=== PATIENT | female | born 1985 | race Caucasian/White ===

== ENCOUNTER 2020-06-29 14:09 | Observation (INO) | payer MEDICAID ==
[~2020-06-29] VITALS: Ht 157.5 cm; Wt 67.1 kg
[~2020-06-29 14:09] MED LIST: TYLENOL PO
[2020-06-29] MEDS ORDERED: FOLI0.4T2 MT (15:29)
[2020-06-29] MEDS ORDERED: PREN1TAB78 MT (15:29)
[2020-06-29] MEDS ORDERED: ASPI-1497 MT (15:29)
== END 2020-06-29 16:30 | disposition home or self-care (01) ==
LOC: 8 EST A/PP 14:09
PROVIDERS: ADMIT Obstetrics & Gynecology; ATTEND Obstetrics & Gynecology
DX: Z34.93 Encounter for supervision of normal pregnancy, unspecified, third trimester (principal); Z3A.32 32 weeks gestation of pregnancy
CPT/HCPCS: 59025; 76815; 76818; G0378

== ENCOUNTER 2020-07-02 09:46 | Inpatient (IN) | payer MEDICAID ==
[~2020-07-02] VITALS: Ht 157.5 cm; Wt 67.1 kg
[~2020-07-02 09:46] MED LIST changes: +ASPI-1497 MT; +FOLI0.4T2 MT; +PREN1TAB78 MT
[2020-07-02] MEDS: LACTATED RINGERS 1,000 ML IV SCH ×2 (16:56→23:47)
[2020-07-02] MEDS ORDERED: AZITHROMYCIN 500 MG TABLET PO SCH (18:00)
[2020-07-02] MEDS ORDERED: BETAMETHASONE ACET/BETAMET 30 MG/5 ML VIAL IM SCH (18:00)
[2020-07-02] MEDS: AMPICILLIN 2GM in NS 100ML 100 ML IV SCH (18:50)
[2020-07-02 21:23] LABS: BASOPHILS % 0.7 % (0.0-2.0); EOSINOPHILS % 0.5 % (0.0-5.0); HEMATOCRIT. 30.6 % (36.0-48.0); HEMOGLOBIN. 10.2 g/dL (12.0-16.0); LYMPHOCYTES % 23.3 % (20.0-50.0); MEAN CORPUSCULAR HEMOGLOBIN 27.8 pg (28.0-32.0); MEAN PLATELET VOLUME 8.2 fl (7.4-10.4); MONOCYTES % 7.8 % (2.0-8.0); NEUTROPHILS % 67.7 % (40.0-76.0); PLATELET 307 x1000/uL (130-400); RED BLOOD CELL COUNT 3.69 mill/uL (4.2-5.4); RED CELL DISTRIBUTION WIDTH 13.9 % (11.6-14.6)
[2020-07-02 21:26] LABS: CLARITY URINE CLEAR (CLEAR); COLOR URINE YELLOW (YELLOW); KETONES URINE NEGATIVE (NEGATIVE); LEUKOCYTE ESTERASE URINE NEGATIVE (NEGATIVE); NITRITE URINE NEGATIVE (NEGATIVE); OCCULT BLOOD URINE NEGATIVE (NEGATIVE); PROTEIN URINE NEGATIVE (NEGATIVE); UROBILINOGEN URINE 0.2 E.U./dL (0.2-1.0)
[2020-07-02 21:34] LABS: INR 0.9; PARTIAL THROMBOPLASTIN TIME 23.4 sec (23.4-31.0); PROTHROMBIN TIME 9.7 sec (9.6-11.0)
[2020-07-02 21:47] LABS: *BARBITURATES SCREEN URINE NEGATIVE (NEGATIVE); *COCAINE SCREEN URINE NEGATIVE (NEGATIVE)
[2020-07-02 21:48] LABS: *AMPHETAMINES SCREEN URINE NEGATIVE (NEGATIVE); *BENZODIAZEPINES SCREEN URINE NEGATIVE (NEGATIVE); METHADONE URINE SCREEN NEGATIVE (NEGATIVE); OPIATES URINE SCREEN NEGATIVE (NEGATIVE); PHENCYCLIDINE URINE SCREEN NEGATIVE (NEGATIVE)
[2020-07-02 21:49] LABS: CANNABINOID URINE SCREEN NEGATIVE (NEGATIVE)
[2020-07-02 22:06] LABS: HEPATITIS B SURFACE ANTIGEN NEGATIVE
[2020-07-03] MEDS: AMPICILLIN 2GM in NS 100ML 100 ML IV SCH ×4 (00:42→12:00)
[2020-07-03] MEDS ORDERED: MAGNESIUM 4 G PREMIX 100 ML IV NR (06:30)
[2020-07-03] MEDS ORDERED: MAGNESIUM 20 G PREMIX (L & D) 500 ML IV SCH (06:30)
[2020-07-03] MEDS: LACTATED RINGERS 1,000 ML IV SCH (07:43)
[2020-07-03] MEDS ORDERED: MORPHINE SULFATE/PF 1MG/ML 10ML AMP ONE (08:50)
[2020-07-03] MEDS ORDERED: FENTANYL CITRATE/PF 50MCG/ML 2ML VIAL ONE (08:50)
[2020-07-03] MEDS ORDERED: DEXT 5%/LR + PITOCIN 20UNITS/L 1,000 ML IV SCH (09:45)
[2020-07-03] MEDS ORDERED: LANOLIN OINT 7GM TUBE TOP PRN (09:45)
[2020-07-03] MEDS ORDERED: ACETAMINOPHEN WITH CODEINE 300/30MG TABLET PO PRN (09:45)
[2020-07-03] MEDS ORDERED: IBUPROFEN 400MG TABLET PO PRN (09:45)
[2020-07-03] MEDS ORDERED: HEMORRHOIDAL SUPP PR PRN (09:45)
[2020-07-03] MEDS ORDERED: BISACODYL 10MG SUPP PR PRN (09:45)
[2020-07-03] MEDS ORDERED: BUTORPHANOL TARTRATE 2 MG/ML VIAL IM PRN (10:00)
[2020-07-03] MEDS ORDERED: LABETALOL 5MG/ML SYR 20 MG/4 ML SYRINGE IV PRN (10:00)
[2020-07-03] MEDS ORDERED: ONDANSETRON HCL 4MG/2ML INJ IV PRN (10:00)
[2020-07-03] MEDS ORDERED: MEPERIDINE HCL/PF 25MG/ML CPJ IV PRN (10:00)
[2020-07-03] MEDS ORDERED: HYDROMORPHONE HCL/PF 2MG/ML CPJ IV PRN (10:00)
[2020-07-03] MEDS: SIMETHICONE 80MG TABLET CHEW PO SCH ×3 (11:00→21:00)
[2020-07-03] MEDS: MAGNESIUM/ALUMINUM HYDROXIDE/SIMETHICONE 30ML UDC PO SCH ×3 (11:00→21:00)
[2020-07-03] MEDS: ONDANSETRON HCL 4MG/2ML INJ IV PRN ×2 (11:31→17:23)
[2020-07-03] MEDS: DIPHENHYDRAMINE 50MG/ML VIAL IV PRN ×2 (11:31→17:08)
[2020-07-03 13:00] VITALS: BP 97/55
[2020-07-03] MEDS: KETOROLAC 30MG/ML VIAL IV PRN (14:10)
[2020-07-03 16:30] VITALS: BP 110/60
[2020-07-03] MEDS ORDERED: ONDANSETRON HCL 4MG/2ML INJ ONE (17:00)
[2020-07-03 19:40] VITALS: BP 98/60
[2020-07-03] MEDS: DOCUSATE SODIUM 100MG CAPSULE PO SCH (21:00)
[2020-07-03] MEDS ORDERED: DIPHENHYDRAMINE 25MG CAPSULE PO PRN (21:00)
[2020-07-04] VITALS: BP 99/62
[2020-07-04] MEDS: DIPHENHYDRAMINE 50MG/ML VIAL IV PRN (01:27)
[2020-07-04] MEDS: KETOROLAC 30MG/ML VIAL IV PRN (02:41)
[2020-07-04 04:00] VITALS: BP 103/63
[2020-07-04] MEDS: AMPICILLIN 2GM in NS 100ML 100 ML IV SCH (06:45)
[2020-07-04 08:00] VITALS: BP 113/76
[2020-07-04 08:22] LABS: BASOPHILS % 0.4 % (0.0-2.0); EOSINOPHILS % 0.1 % (0.0-5.0); HEMATOCRIT. 26.2 % (36.0-48.0); HEMOGLOBIN. 9.2 g/dL (12.0-16.0); LYMPHOCYTES % 16.3 % (20.0-50.0); MEAN CORPUSCULAR HEMOGLOBIN 28.7 pg (28.0-32.0); MEAN CORPUSCULAR VOLUME 81.5 fL (81.0-99.0); MONOCYTES % 8.2 % (2.0-8.0); PLATELET 223 x1000/uL (130-400); RED BLOOD CELL COUNT 3.22 mill/uL (4.2-5.4); RED CELL DISTRIBUTION WIDTH 14.5 % (11.6-14.6)
[2020-07-04] MEDS: PRENATAL VIT/FE FUMARATE/FA TABLET PO SCH (09:00)
[2020-07-04] MEDS: SIMETHICONE 80MG TABLET CHEW PO SCH ×2 (09:15→22:50)
[2020-07-04] MEDS: MAGNESIUM/ALUMINUM HYDROXIDE/SIMETHICONE 30ML UDC PO SCH ×2 (09:15→22:53)
[2020-07-04] MEDS: IBUPROFEN 800MG TABLET PO PRN ×3 (11:12→23:00)
[2020-07-04 17:30] VITALS: BP 97/64
[2020-07-04 20:00] VITALS: BP 98/57
[2020-07-04] MEDS: DOCUSATE SODIUM 100MG CAPSULE PO SCH (22:50)
[2020-07-04] MEDS: AMOXICILLIN 250MG CAPSULE PO SCH (22:56)
[2020-07-05] VITALS: BP 102/70
[2020-07-05] MEDS: AMOXICILLIN 250MG CAPSULE PO SCH (05:59)
[2020-07-05] MEDS: IBUPROFEN 800MG TABLET PO PRN ×2 (06:07→12:11)
[2020-07-05 08:00] VITALS: BP 105/69
[2020-07-05] MEDS ORDERED: FERR325T6 MT (08:08)
[2020-07-05] MEDS ORDERED: IBUP-2030 PO (08:08)
[2020-07-05] MEDS: PRENATAL VIT/FE FUMARATE/FA TABLET PO SCH (09:19)
[2020-07-05] MEDS ORDERED: PENICILLIN G BENZATHINE 2,400,000 UNITS/4ML SYR IM SCH (10:00)
== END 2020-07-05 12:30 | disposition home or self-care (01) | DRG 540 ==
LOC: OBSVTOIN 09:46 → 8 EST A/PP 09:46
PROVIDERS: ADMIT Obstetrics & Gynecology; ATTEND Obstetrics & Gynecology
PROC: 10D00Z1 Extraction of Products of Conception, Low, Open Approach (ICD-10-PCS; principal; 2020-07-03)
PROC: 0UB70ZZ Excision of Bilateral Fallopian Tubes, Open Approach (ICD-10-PCS; 2020-07-03)
DX: O42.913 Preterm premature rupture of membranes, unspecified as to length of time between rupture and onset of labor, third trimester (principal); A53.0 Latent syphilis, unspecified as early or late; D64.9 Anemia, unspecified; N94.89 Other specified conditions associated with female genital organs and menstrual cycle; O30.033 Twin pregnancy, monochorionic/diamniotic, third trimester; O34.83 Maternal care for other abnormalities of pelvic organs, third trimester; O98.12 Syphilis complicating childbirth; Z20.828 Contact with and (suspected) exposure to other viral communicable diseases; O99.02 Anemia complicating childbirth; Z30.2 Encounter for sterilization; Z37.2 Twins, both liveborn; Z3A.32 32 weeks gestation of pregnancy
CPT/HCPCS: 36415; 76805; 76810; 76815; 76818; 80305; 81003; 85025; 86592; 86593; 86703; 86762; 86780; 86850; 86900; 87340; 87426; 88302; 88307; J0290; J0561; J0702; J1200; J1885; J2274; J2405; J2590; J3010; J3475; J7120; Q0163